=== PATIENT | male | born 1945 | race Caucasian/White ===

== ENCOUNTER 2020-10-27 06:22 | Day surgery (SDC) | payer MEDICARE, BC ==
[~2020-10-27 06:22] MED LIST: Lactated Ringers 1,000 ML IV SCH
[2020-10-27] MEDS ORDERED: Propofol 200 MG/20 ML SDV ONE ×2 (07:10→09:13)
[2020-10-27] MEDS ORDERED: fentaNYL 100 MCG/2 ML SDV ONE (07:10)
--- NOTE | 2020-10-27 07:13 | PCM.PREANE ---
Preanesthetic Assessment - Procedure Proposed Procedure: Colonoscopy - Anesthesia/Transfusion/Family Hx Anesthesia History: Prior Anesthesia Without Reaction Transfusion History: No Prior Transfusion(s) - Review of Systems General: No Symptoms Pulmonary: Other (CARLIE uses CPAP) Cardiovascular: No Symptoms (H/O Rheumatic fever age 7, has murmur but no other issues.) Gastrointestinal: No Symptoms Neurological: No Symptoms Other: Reports: Diabetes (NIDDM) - Physical Assessment NPO Status Date: 10/25/20 NPO Status Time: 22:00 Vital Signs: Last Vital Signs Temp 97.2 F 10/27/20 06:42 Pulse 54 L 10/27/20 06:42 Resp 16 10/27/20 06:42 BP 146/70 H 10/27/20 06:42 Pulse Ox 95 10/27/20 06:42 Height: 5 ft 8 in Weight: 125.645 kg (Morbid Obesity) ASA Class: 3 Mental Status: Alert & Oriented x3 Airway Class: Mallampati = 3 Dentition: Reports: Normal Dentition Thyro-Mental Finger Breadths: 3 Mouth Opening Finger Breadths: 3 ROM/Head Extension: Full Lungs: Clear to Auscultation, Normal Respiratory Effort Cardiovascular: Regular Rate, Regular Rhythm - Allergies Allergies/Adverse Reactions: Allergies Allergy/AdvReac Type Severity Reaction Status Date / Time No Known Allergies Allergy Verified 10/21/20 07:56 - Acknowledgements Anesthesia Type Planned: General Anesthesia Pt an Appropriate Candidate for the Planned Anesthesia: Yes Alternatives and Risks of Anesthesia Discussed w Pt/Guardian: Yes Pt/Guardian Understands and Agrees with Anesthesia Plan: Yes PreAnesthesia Questionnaire HEENT History: Reports: Hard of Hearing, Other (See Below) Other HEENT History: wears glasses, elaina hearing aids Cardiovascular History: Reports: Heart Murmur Other Cardiovascular History: edema to lower extremities Respiratory History: Reports: Sleep Apnea Other Respiratory History: uses CPAP Gastrointestinal History: Reports: None Genitourinary History: Reports: None Musculoskeletal History: Reports: None Neurological History: Reports: None Psychiatric History: Reports: None Endocrine/Metabolic History: Reports: Obesity/BMI 30+ Other Endocrine/Metabolic History: "borderline diabetic" Hematologic History: Reports: None Immunologic History: Reports: None Oncologic (Cancer) History: Reports: None Dermatologic History: Reports: None - Past Surgical History Head Surgeries/Procedures: Reports: None HEENT Surgical History: Reports: Tonsillectomy Cardiovascular Surgical History: Reports: None Respiratory Surgical History: Reports: None GI Surgical History: Reports: Appendectomy Male Surgical History: Reports: None Endocrine Surgical History: Reports: None Neurological Surgical History: Reports: None Musculoskeletal Surgical History: Reports: None Oncologic Surgical History: Reports: None Dermatological Surgical History: Reports: None - SUBSTANCE USE Tobacco Use Within Last Twelve Months: Smokeless Tobacco Recreational Drug Use History: No - HOME MEDS Home Medications: Home Meds Bumetanide 2 mg PO DAILY 10/21/20 [History] Multivitamin 1 tab PO DAILY 10/21/20 [History] [place]-3S/DHA/Epa/Fish Oil [Fish Oil [place]-3 Softgel] 600 mg PO DAILY 10/21/20 [History] Testosterone Cypionate 1 injection IM ASDIRECTED 10/21/20 [History] metFORMIN HCl [Metformin HCl ER] 500 mg PO ACBREAKFAST 10/21/20 [History] - CURRENT (IN HOUSE) MEDS Current Meds: Current Medications Lactated Ringer's (Ringers, Lactated) 1,000 mls @ 125 mls/hr IV ASDIRECTED [facility] Last Admin: 10/27/20 06:57 Dose: 125 mls/hr Documented by:
--- NOTE | 2020-10-27 08:37 | PCM.OPNOTE ---
- General Post-Op/Procedure Note Date of Surgery/Procedure: 10/27/20 Operative Procedure(s): Colonoscopy with cold ascending colon polypectomy and cold rectal polypectomy. Pre Op Diagnosis: Positive Cologuard test. Rectal bleeding. Family history of colon cancer. Post-Op Diagnosis: Descending colon and rectal polyps. Anesthesia Technique: MAC (ASA III) Primary Surgeon: Jose Ojeda Condition: Good Free Text/Narrative:: DICTATION [id number] CPT CODE [id number]
--- NOTE | 2020-10-27 08:43 | PCM.POSTAN ---
POST ANESTHESIA ASSESSMENT - MENTAL STATUS Mental Status: Alert - VITAL SIGNS Vital Signs: Last Vital Signs Temp 97.2 F 10/27/20 06:42 Pulse 54 L 10/27/20 06:42 Resp 16 10/27/20 06:42 BP 146/70 H 10/27/20 06:42 Pulse Ox 95 10/27/20 06:42 - RESPIRATORY Respiratory Status: Respiratory Rate WNL, Airway Patent, O2 Saturation Stable - CARDIOVASCULAR CV Status: Pulse Rate WNL, Blood Pressure Stable - GASTROINTESTINAL GI Status: No Symptoms - PAIN Pain Score: 0 - POST OP HYDRATION Hydration Status: Adequate & Stable
[2020-10-27] MEDS ORDERED: Lactated Ringers 1,000 ML IV SCH (08:45)
--- NOTE | 2020-10-27 08:46 | PCM48HPAN ---
Post Anesthesia Note - EVALUATION WITHIN 48HRS OF ANESTHETIC Vital Signs in Normal Range: Yes Patient Participated in Evaluation: Yes Respiratory Function Stable: Yes Airway Patent: Yes Cardiovascular Function Stable: Yes Hydration Status Stable: Yes Pain Control Satisfactory: Yes Nausea and Vomiting Control Satisfactory: Yes Mental Status Recovered: Yes Vital Signs: Last Vital Signs Temp 97.2 F 10/27/20 06:42 Pulse 52 L 10/27/20 08:40 Resp 10 L 10/27/20 08:40 BP 115/59 L 10/27/20 08:40 Pulse Ox 94 L 10/27/20 08:40 - COMMENTS/OBSERVATIONS Free Text/Narrative:: Pt doing well post-op. VSS. No apparent anesthetic complications. Dr. Chase Hart
--- NOTE | 2020-10-27 10:50 | OR ---
SURGEON: Jose Ojeda M.D. DATE OF PROCEDURE: 10/27/2020 OPERATION PERFORMED: Colonoscopy with cold polypectomies of the descending colon and proximal rectum. PRIMARY SURGEON: Jose Ojeda MD ANESTHESIA: MAC. ASA CLASSIFICATION: III. PREOPERATIVE DIAGNOSES: 1. Positive Cologuard test. 2. Rectal bleeding. 3. Family history of colon cancer. POSTOPERATIVE DIAGNOSES: Descending colon polyp and proximal rectal polyp. DESCRIPTION OF PROCEDURE: The patient was taken to the endoscopy room and positioned on the endoscopy table in the left lateral decubitus position. Time-out was called for appropriate identification of patient and procedure. Monitored anesthesia care was provided. The colonoscope was inserted into the rectum and advanced with minimal difficulty to the cecum. The cecum was identified by internal landmarks and external pressure. The colonoscope was retroflexed to visualize the ascending colon from below, then straightened, and slowly withdrawn. The cecum, ascending colon, hepatic flexure, transverse colon, and splenic flexure showed no tumors, polyps, diverticula, or angiodysplastic changes. Two small polyps were encountered in the same area in the descending colon and removed with cold biopsy forceps. As the colonoscope was withdrawn to the proximal rectum, 2 other polyps were encountered again in the same area and removed with cold biopsy forceps. The colonoscope was then withdrawn to the distal rectum and retroflexed to visualize the anal orifice from above. No tumors, polyps, or acute hemorrhoidal changes were noted. The colonoscope was then straightened, the rectum aspirated, and the colonoscope removed. The patient tolerated the procedure well and was taken to recovery room in stable condition. SAM / MAURICE /[id number]
== END 2020-10-27 09:15 | disposition home or self-care (01) ==
LOC: MW.SDS 06:22
PROVIDERS: ATTEND Surgery
DX: D12.4 Benign neoplasm of descending colon (principal); K62.1 Rectal polyp; E11.9 Type 2 diabetes mellitus without complications; E66.9 Obesity, unspecified; G47.30 Sleep apnea, unspecified; F17.290 Nicotine dependence, other tobacco product, uncomplicated; Z80.0 Family history of malignant neoplasm of digestive organs; Z90.49 Acquired absence of other specified parts of digestive tract; Z79.899 Other long term (current) drug therapy; Z79.84 Long term (current) use of oral hypoglycemic drugs; Z68.41 Body mass index [BMI] 40.0-44.9, adult
CPT/HCPCS: 45380; J2704; J3010; J7120; 00812; 88305; 99100